=== PATIENT | male | born 1955 | race Caucasian/White ===

== ENCOUNTER 2018-10-08 11:17 | Emergency (ER) | payer OTHER, BC ==
[2018-10-08 11:28] VITALS: BP 162/77; PULSE 102; RESP 18; TEMP 98.2
[2018-10-08] MEDS ORDERED: Acetaminophen-Codeine 300-30mg TAB PO STA (11:57)
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
--- NOTE | 2018-10-08 12:40 | XR ---
EXAMINATION TYPE: XR chest 1V DATE OF EXAM: 10/08/2018 COMPARISON: NONE HISTORY: Pain TECHNIQUE: Single frontal view of the chest is obtained. FINDINGS: Subsegmental consolidation at both lung bases. Nonspecific pleural thickening on the left with evidence of previous trauma. No pneumothorax. Biapical pleural thickening. Hypertrophic change o f the spine. Deformity of the left clavicle noted. IMPRESSION: Bilateral lower lobe atelectasis or infiltrate. Chronic appearing pleural thickening and rib cage deformity on the left. Deformity of the left clavicle. Correlate clinically.
--- NOTE | 2018-10-08 12:42 | XR ---
EXAMINATION TYPE: XR shoulder complete LT DATE OF EXAM: 10/08/2018 COMPARISON: NONE HISTORY: Pain TECHNIQUE: Three views are submitted. FINDINGS: There is a displaced fracture involving the left clavicle. Chronic appearing fracture and arthropathy of the left humerus. Rib cage deformities and pleural thickening suggest previous trauma. There is A C joint arthropathy. IMPRESSION: 1. Severe arthropathy left shoulder with evidence of previous left humeral fracture. 2. Displaced left midclavicular fracture of indeterminate age but may be chronic correlate with point tenderness. 3. AC joint arthropathy.
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
== END 2018-10-08 13:30 | disposition home or self-care (01) ==
LOC: EC 11:17
DX: S42.002A Fracture of unspecified part of left clavicle, initial encounter for closed fracture (principal); R07.9 Chest pain, unspecified; E11.9 Type 2 diabetes mellitus without complications; E78.5 Hyperlipidemia, unspecified; G47.30 Sleep apnea, unspecified; Z99.89 Dependence on other enabling machines and devices; F41.9 Anxiety disorder, unspecified; Z79.4 Long term (current) use of insulin; Z79.899 Other long term (current) drug therapy; V89.2XXA Person injured in unspecified motor-vehicle accident, traffic, initial encounter; Y92.410 Unspecified street and highway as the place of occurrence of the external cause
CPT/HCPCS: 70450; 71045; 72125; 99284

== ENCOUNTER → 2020-03-26 | Outpatient (CLI) | payer OTHER ==
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
== END | disposition home or self-care (01) ==
LOC: SLEEP 10:22
PROVIDERS: ATTEND Internal Medicine Critical Care Medicine
DX: G47.33 Obstructive sleep apnea (adult) (pediatric) (principal); E11.9 Type 2 diabetes mellitus without complications; I10 Essential (primary) hypertension; E78.5 Hyperlipidemia, unspecified; Z79.891 Long term (current) use of opiate analgesic; Z79.899 Other long term (current) drug therapy; Z79.4 Long term (current) use of insulin; Z99.89 Dependence on other enabling machines and devices
CPT/HCPCS: 99211

== ENCOUNTER → 2020-06-18 | Outpatient (CLI) | payer OTHER ==
--- NOTE | 2020-06-18 11:45 | PN ---
PROGRESS NOTE This patient is coming in for a compliance check. The patient was diagnosed having severe obstructive sleep apnea with an AHI of 63 and the patient currently has a CPAP with a pressure of 12 cm of water and this is his first compliancy check. He is using the Rosa Maria View full-face mask large size. He is doing extremely well. His weight has been stable at 295. He likes his machine. His sleep quality is improved. He is waking up refreshed and alert during the day and he is benefitting from the ongoing treatment. He is known to have diabetes, hypertension, hyperlipidemia as comorbid conditions. Based on the compliancy data that was completed on the machine for the past 30 days, the patient has been averaging around 6 hours of CPAP use per night with a leak of 18 L/minute. His AHI is down to 4.3 while on treatment. No snoring. No tiredness. No fatigue. No heartburn. No chest pain. No shortness of breath overnight. REVIEW OF SYSTEMS: Fourteen-point review of system was done. Positive findings were mentioned in history of present illness. PHYSICAL EXAMINATION: VITAL SIGNS: BP is 162/94, pulse 84, respirations 12, temperature 97.3, saturation 99% on room air. Weight is 295. GENERAL APPEARANCE: Obese, calm, comfortable. HEAD: Atraumatic, normocephalic. NECK: Supple. No JVD. No goiter or neck masses. LUNGS: Diminished otherwise clear. HEART: Heart sounds are regular rate and rhythm. Normal S1, S2. No S3, S4. No murmurs. ABDOMEN: Soft, nontender. No organomegaly. EXTREMITIES: No edema. No cyanosis or clubbing. IMPRESSION: 1. Severe obstructive sleep apnea, AHI of 63, currently on CPAP at a pressure of 12 cm of water. 2. Nocturnal oxygen desaturation likely improved with CPAP therapy. 3. Chronic hypersomnia, improving with CPAP therapy. 4. Diabetes mellitus. 5. Hypertension. 6. Hyperlipidemia. PLAN: 1. Continue CPAP with the same level of pressure of 12 cm of water. 2. Keep the Rosa Maria View large-size full-face mask. 3. Encourage weight loss. 4. Maintaining good sleep hygiene measures. 5. See me back in followup an a year's time. No need for any further adjustments. His treatment is successful for now. MMODL / IJN: [id number] /
== END ==
LOC: SLEEP 09:19
PROVIDERS: ATTEND Internal Medicine Critical Care Medicine
DX: G47.33 Obstructive sleep apnea (adult) (pediatric) (principal); G47.10 Hypersomnia, unspecified; E11.9 Type 2 diabetes mellitus without complications; I10 Essential (primary) hypertension; E78.5 Hyperlipidemia, unspecified; E66.9 Obesity, unspecified; Z99.81 Dependence on supplemental oxygen

== ENCOUNTER → 2020-07-26 | Outpatient (CLI) | payer OTHER ==
--- NOTE | 2020-07-26 19:37 | US ---
EXAMINATION TYPE: US kidneys/renal and bladder DATE OF EXAM: 07/26/2020 COMPARISON: NONE CLINICAL HISTORY: N28.9 Chronic kidney disease. EXAM MEASUREMENTS: Right Kidney: 13.1 x 6.1 x 5.0 cm Left Kidney: 12.2 x 5.3 x 5.3 cm Right Kidney: cyst measuring 2.1 x 2.0 x 2.6cm, cyst is anechoic with increased through transmission and imperceptible wall consistent with simple cyst Left Kidney: lobular contour, upper pole shows a somewhat bulbous appearance Bladder: wnl There is no evidence for hydronephrosis at this point in time. No nephrolithiasis is seen. Cortical medullary differentiation is maintained. The urinary bladder is anechoic. Bilateral ureteral jets a re seen. IMPRESSION: Successful cyst right kidney. Contour abnormality left kidney upper pole, difficult to exclude mass, consider contrast-enhanced CT or MRI versus continued interval follow-up to assess for stability
== END | disposition home or self-care (01) ==
LOC: RADUSWWP 16:05
PROVIDERS: ATTEND Family Medicine
DX: N28.1 Cyst of kidney, acquired (principal)
CPT/HCPCS: 76770

== ENCOUNTER → 2020-10-03 | Outpatient (CLI) | payer OTHER | END | disposition home or self-care (01) | LOC: RADMRIMAIN 08:57 | PROVIDERS: ATTEND Urology | DX: Z53.9 Procedure and treatment not carried out, unspecified reason (principal) ==

== ENCOUNTER → 2020-10-21 | Outpatient (CLI) | payer OTHER ==
--- NOTE | 2020-10-21 12:56 | XR ---
EXAMINATION TYPE: XR cervical spine comp DATE OF EXAM: 10/21/2020 TECHNIQUE: Frontal, lateral, oblique, swimmers, and open mouth view of the cervical spine are obtaine d. HISTORY: Neck/LBP COMPARISON: None FINDINGS: Vertebral body heights are preserved. Alignment is anatomic. Multilevel endplate sclerosis and osteop hytosis is seen. There is multilevel uncovertebral and facet arthropathy with bony encroachment upon the right C3-4 and left C2-3, C3-4, C4-5 and C5-6 neural foramen. IMPRESSION: Multilevel disc disease and osteoarthritic changes of the cervical spine.
--- NOTE | 2020-10-21 14:20 | XR ---
EXAMINATION TYPE: XR lumbosacral spine min 4V DATE OF EXAM: 10/21/2020 CLINICAL HISTORY: Chronic low back TECHNIQUE: Frontal, lateral, and oblique images of the lumbar spine are obtained. COMPARISON: None FINDINGS: There are 5 lumbar type vertebral bodies identified. There is levoscoliosis of the lumbar spine. Multilevel endplate sclerosis and osteophytosis is noted. There is straightening of the normal lumbar lordosis. Multilevel facet arthropathy is seen. Vascular calcifications are noted. IMPRESSION: Multilevel disc disease and osteoarthritic changes of the lumbar spine with levoscoliosis.
== END | disposition home or self-care (01) ==
LOC: RADXRMAIN 11:55
PROVIDERS: ATTEND Family Medicine
DX: M51.36 Other intervertebral disc degeneration, lumbar region (principal); M47.816 Spondylosis without myelopathy or radiculopathy, lumbar region; M47.812 Spondylosis without myelopathy or radiculopathy, cervical region; M50.322 Other cervical disc degeneration at C5-C6 level
CPT/HCPCS: 72050; 72110

== ENCOUNTER → 2020-12-19 | Outpatient (CLI) | payer OTHER ==
[2020-12-19 12:49] LABS: Appearance,Urine Clear (Clear); Bilirubin,Urine Negative (Negative); Blood,Urine Negative (Negative); Color,Urine Yellow; Glucose,Urine (UA) 4+ (Negative); Ketones,Urine Negative (Negative); Leukocyte Esterase,Urine Negative (Negative); Nitrite,Urine Negative (Negative); Protein,Urine Negative (Negative); Specific Gravity,Urine 1.017 (1.001-1.035); Urobilinogen,Urine <2.0 mg/dL (<2.0)
[2020-12-19 18:52] LABS: HCT 45.9 % (39.6-50.0); HGB 14.3 g/dL (13.0-17.0); MCH 28.5 pg (27.0-32.0); MCHC 31.2 g/dL (32.0-37.0); MCV 91.6 fL (80.0-97.0); Mean Platelet Volume 11.7 fL (9.5-12.2); Platelet Count 176 X 10*3/uL (140-440); RBC 5.01 X 10*6/uL (4.40-5.60); WBC 8.56 X 10*3/uL (4.50-10.00)
[2020-12-20 05:20] LABS: % Iron Saturation 16.43 (15.00-50.00); African American GFR (CKD) 61.5 (60.0-200.0); Albumin 4.6 g/dL (3.80-4.90); Albumin/Globulin Ratio 1.92 (1.60-3.17); Anion Gap 13.3 mmol/L (4.00-12.00); BUN/Creat Ratio 22.14 Ratio (12.00-20.00); Calcium 10.1 mg/dL (8.7-10.3); Carbon Dioxide 24.7 mmol/L (21.6-31.8); Globulin 2.4 g/dL (1.6-3.3); Magnesium 1.9 mg/dL (1.5-2.4); Non-African American GFR(CKD) 53.1 (60.0-200.0); Phosphorus 4.2 mg/dL (2.4-5.1); Potassium 4.3 mmol/L (3.5-5.5); Total Bilirubin 0.3 mg/dL (0.2-1.2); Uric Acid 8.3 mg/dL (3.7-8.7)
[2020-12-20 05:27] LABS: Ferritin 23.5 ng/mL (22.0-322.0)
[2020-12-20 14:06] LABS: Urine Creatinine 44.8 mg/dL
== END | disposition home or self-care (01) ==
LOC: LABWHC1 11:42
PROVIDERS: ATTEND Internal Medicine
DX: N18.31 Chronic kidney disease, stage 3a (principal); D64.9 Anemia, unspecified; N39.0 Urinary tract infection, site not specified; N25.81 Secondary hyperparathyroidism of renal origin; E55.9 Vitamin D deficiency, unspecified; M10.9 Gout, unspecified
CPT/HCPCS: 36415; 80053; 81003; 82043; 82306; 82570; 82728; 83540; 83550; 83735; 83970; 84100; 84550; 85027

== ENCOUNTER → 2021-04-29 | Outpatient (CLI) | payer OTHER ==
[2021-04-29 14:27] LABS: Appearance,Urine Clear (Clear); Bilirubin,Urine Negative (Negative); Blood,Urine Negative (Negative); Color,Urine Yellow; Glucose,Urine (UA) 4+ (Negative); Ketones,Urine Negative (Negative); Leukocyte Esterase,Urine Negative (Negative); Nitrite,Urine Negative (Negative); Protein,Urine Negative (Negative); Specific Gravity,Urine 1.013 (1.001-1.035); Urobilinogen,Urine <2.0 mg/dL (<2.0)
[2021-04-29 17:54] LABS: Basophils # (A) 0.04 X 10*3/uL (0.00-0.10); Basophils % (A) 0.5 %; Eosinophils # (A) 0.06 X 10*3/uL (0.04-0.35); Eosinophils % (A) 0.7 %; HCT 46.6 % (39.6-50.0); HGB 14.5 g/dL (13.0-17.0); Lymphocytes # (A) 1.73 X 10*3/uL (0.90-5.00); Lymphocytes % (A) 20.8 %; MCHC 31.1 g/dL (32.0-37.0); MCV 93.2 fL (80.0-97.0); Mean Platelet Volume 11.9 fL (9.5-12.2); Monocytes # (A) 0.57 X 10*3/uL (0.20-1.00); Monocytes % (A) 6.9 %; Neutrophils # (A) 5.87 X 10*3/uL (1.80-7.70); Neutrophils % (A) 70.7 %; Platelet Count 169 X 10*3/uL (140-440)
[2021-04-29 18:08] LABS: % Iron Saturation 21.23 (15.00-50.00); African American GFR (CKD) 66.8 (60.0-200.0); Albumin 4.3 g/dL (3.8-4.9); Albumin/Globulin Ratio 1.47 (1.60-3.17); Anion Gap 12.7 mmol/L (10.00-18.00); BUN/Creat Ratio 17.38 Ratio (12.00-20.00); Blood Urea Nitrogen 22.6 mg/dL (9.0-27.0); Calcium 9.5 mg/dL (8.7-10.3); Carbon Dioxide 23.6 mmol/L (20.0-27.5); Globulin 2.9 g/dL (1.6-3.3); Magnesium 2.2 mg/dL (1.5-2.4); Non-African American GFR(CKD) 57.7 (60.0-200.0); Phosphorus 3.6 mg/dL (2.4-5.1); Potassium 4.6 mmol/L (3.5-5.5); Total Bilirubin 0.3 mg/dL (0.30-1.20); Total Protein 7.2 g/dL (6.2-8.2); Uric Acid 6.3 mg/dL (3.7-8.7)
[2021-04-29 18:47] LABS: Ferritin 45.8 ng/mL (22.0-322.0)
[2021-04-29 23:19] LABS: Urine Creatinine 51.9 mg/dL (39.0-259.0)
== END | disposition home or self-care (01) ==
LOC: LABWHC1 13:12
PROVIDERS: ATTEND Internal Medicine
DX: E11.65 Type 2 diabetes mellitus with hyperglycemia (principal); E11.22 Type 2 diabetes mellitus with diabetic chronic kidney disease; N18.31 Chronic kidney disease, stage 3a
CPT/HCPCS: 36415; 80053; 81003; 82043; 82306; 82570; 82728; 83036; 83540; 83550; 83735; 83970; 84100; 84550; 85025

== ENCOUNTER → 2021-06-24 | Outpatient (CLI) | payer OTHER ==
--- NOTE | 2021-06-24 16:09 | P.PN ---
Subjective Progress Note Date: 06/24/21 This is a 66-year-old male patient with known history of obstructive sleep apnea. I'm seeing this patient for a follow-up. His last evaluation was in the sleep center on 06/18/2020. The patient is known to have severe SARAH and the patient carries a AHI of 63. The patient continues to be on a CPAP pressure of 12 cm of water. He continues to use the Rosa Maria view fullface mask, large size. He is doing well. He has no specific complaints. He has noted that his AHI has been recently higher than the usual. Based on this, I did a compliance evaluation of this patient. Based on the thirty-day compliancy, I noted that the patient has been achieving more than 4 hours of CPAP use 100% of the time. The patient has been averaging around 81 hours of CPAP use per night. Leak is in order of 5 L per minute and the patient had an AHI of 8.5 while on treatment. The patient's weight is at 283 which is lower compared to last year and the patient has lost approximately 12 pounds. No angina. No palpitation. No chest pain. No shortness of breath. No heartburn. No sleepwalking. No sleep talking. No sleep paralysis. No naps during the day. He is able to drive his car without feeling drowsy or falling sleep. Objective - Exam the patient's BP is at143/82 with a pulse of 96 the patient has a respiration of 16 with a temperature of 96.9. The patient has a sleepiness [place] score of 6. The patient's saturations 98% on room air oxygen. His weight is down to 283 pounds. The patient appeared well nourished and normally developed. Vital signs as documented. Head exam is unremarkable. No scleral icterus or corneal arcus noted. Neck is without jugular venous distension, thyromegaly, or carotid bruits. the patient is a Mallampati class IV.Carotid upstrokes are brisk bilaterally. Lungs are clear to auscultation and percussion. Cardiac exam reveals the PMI to be normally sized and situated. Rhythm is regular. First and second heart sounds normal. No murmurs, rubs or gallops. Abdominal exam reveals normal bowel sounds, no masses, no organomegaly and no aortic enlargement. Extremities are nonedematous and both femoral and pedal pulses are normal.Examination of the skin revealed no evidence of significant rashes, suspicious appearing nevi or other concerning lesions.Neurologically, the patient is awake and alert and the patient does not have any focal neurological deficit. Cranial nerves are essentially intact. Assessment and Plan Plan: 1 obstructive sleep apnea, severe, with an AHI of 63, currently on CPAP pressure of 12 cm of water. 2 hypersomnia, improved 3 obesity with interval weight loss, current body weight is 283 4 diabetes mellitus 5 hypertension 6 hyperlipidemia Plan I check the compliance data. Ongoing to increase his CPAP pressure to 13 cm of water and I'm hoping to bring his AHI on the 5. He'll be kept on the same fullface maskwhich is a large size Rosa Maria view fullface mask. His sleep hygiene measures that in general good. Doing well. No other major comorbidities. We'll see tachypneic and follow-up regarding his obstructive sleep apnea.
== END ==
LOC: SLEEP 13:07
PROVIDERS: ATTEND Internal Medicine Critical Care Medicine
DX: G47.33 Obstructive sleep apnea (adult) (pediatric) (principal); Z99.89 Dependence on other enabling machines and devices; E66.9 Obesity, unspecified; E11.9 Type 2 diabetes mellitus without complications; I10 Essential (primary) hypertension; E78.5 Hyperlipidemia, unspecified

== ENCOUNTER → 2021-09-02 | Outpatient (CLI) | payer OTHER ==
[2021-09-02 22:39] LABS: HCT 47.7 % (39.6-50.0); MCHC 31.4 g/dL (32.0-37.0); MCV 92.3 fL (80.0-97.0); Mean Platelet Volume 11.6 fL (9.5-12.2); NRBC Per 100 WBC 0 /100 WBCS (0.0-0.0); Platelet Count 162 X 10*3/uL (140-440); RBC 5.17 X 10*6/uL (4.40-5.60); RDW 15.3 % (11.5-14.5)
[2021-09-02 22:48] LABS: ALT 46 U/L (10-49); AST 26 U/L (14-35); African American GFR (CKD) 61.1 (60.0-200.0); Albumin 4.4 g/dL (3.8-4.9); Albumin/Globulin Ratio 1.57 (1.60-3.17); Alkaline Phosphatase 48 U/L (41-126); Blood Urea Nitrogen 23.8 mg/dL (9.0-27.0); Calcium 9.8 mg/dL (8.7-10.3); Carbon Dioxide 24.9 mmol/L (20.0-27.5); Chloride 99 mmol/L (96-109); Globulin 2.8 g/dL (1.6-3.3); Glucose 103 mg/dL (70-110); Magnesium 2.3 mg/dL (1.5-2.4); Non-African American GFR(CKD) 52.7 (60.0-200.0); Phosphorus 4.1 mg/dL (2.4-5.1); Potassium 4.6 mmol/L (3.5-5.5); Sodium 136 mmol/L (135-145); Total Bilirubin <0.15 mg/dL (0.30-1.20); Total Protein 7.2 g/dL (6.2-8.2); Uric Acid 6.2 mg/dL (3.7-8.7)
[2021-09-03 00:30] LABS: % Iron Saturation 14.88 (15.00-50.00); Iron 55 ug/dL (65-175); Total Iron Binding Capacity 368 ug/dL (228-460)
[2021-09-03 00:48] LABS: Ferritin 50.4 ng/mL (22.0-322.0)
[2021-09-03 01:07] LABS: Appearance,Urine Clear (Clear); Bilirubin,Urine Negative (Negative); Blood,Urine Negative (Negative); Color,Urine Dark Yellow (Yellow); Ketones,Urine Negative (Negative); Nitrite,Urine Negative (Negative); PH, Urine 5.5 (5.0-8.0); Specific Gravity,Urine 1.019 (1.001-1.030); Urobilinogen,Urine 0.2 (0.2,1.0)
[2021-09-03 05:23] LABS: Urine Creatinine 53.1 mg/dL (39.0-259.0)
== END | disposition home or self-care (01) ==
LOC: LABWHC1 15:49
PROVIDERS: ATTEND Nurse Practitioner Family
DX: E55.9 Vitamin D deficiency, unspecified (principal); N18.31 Chronic kidney disease, stage 3a; D64.9 Anemia, unspecified; M10.9 Gout, unspecified; N39.0 Urinary tract infection, site not specified; N25.81 Secondary hyperparathyroidism of renal origin
CPT/HCPCS: 36415; 80053; 81003; 82043; 82306; 82570; 82728; 83540; 83550; 83735; 83970; 84100; 84550; 85027

== ENCOUNTER → 2022-08-25 | Outpatient (CLI) | payer MEDICARE, OTHER ==
--- NOTE | 2022-08-25 14:19 | P.PN ---
Progress Note - Text Progress Note Date: 08/25/22 67-year-old male patient was coming in to see me for an annual checkup regarding his obstructive sleep apnea. He is a case of severe SARAH with an AHI of 63. His last evaluation was on 06/24/2021. At that time, the patient was noted to have increase apneas while being on CPAP. Based on that, I moved his pressure from 12 cm of water to 13 cm of water. Since then, the patient has lost weight. He used to weigh around 286 pounds and currently is down to 256. He is going to some difficulties times with his family and . He is at this point in time and is living alone. His was having issues with bipolar and mental health. Meanwhile, the patient is still very much compliant to CPAP unit. His machine is functional. He has using the machine every night and his compliancy in general is at 100%, averaging about 8.1 hours of CPAP per night with a leak of 12 L/m and his AHI is down to 5.9 while on treatment. No snoring. No hypersomnia or sleepiness during the day. Is using a Rosa Maria view, fullface mask. He is known to have other comorbid conditions including diabetes mellitus type 2, hypertension, chronic back pain and hyperlipidemia. No stroke. No congestion heart failure. No cardiac arrhythmias. No sleep walking. No sleep talking. He is taking CBD for chronic back pain. No headaches. BP is 129/82, pulse is 92, respirations 16, temperature is 98.2 and the weight is 256. [place] score is at 8. Body mass index is 33.8 The patient appeared well nourished and normally developed. Vital signs as documented. Head exam is unremarkable. No scleral icterus or corneal arcus noted. Neck is without jugular venous distension, thyromegaly, or carotid bruits. Carotid upstrokes are brisk bilaterally. Lungs are clear to auscultation and percussion. Cardiac exam reveals the PMI to be normally sized and situated. Rhythm is regular. First and second heart sounds normal. No murmurs, rubs or gallops. Abdominal exam reveals normal bowel sounds, no masses, no organomegaly and no aortic enlargement. Extremities are nonedematous and both femoral and pedal pulses are normal.Examination of the skin revealed no evidence of significant rashes, suspicious appearing nevi or other concerning lesions.Neurologically, the patient is awake and alert and the patient does not have any focal neurological deficit. Cranial nerves are essentially intact. Assessment Severe SARAH with an AHI of 63, currently on CPAP pressure of 15 cm of water. The patient is demonstrating excellent compliancy and clinical response. Obesity with interval weight loss. Current body mass index is 33.8 Chronic hypersomnia, improved and the patient's [place] score is down to 8 Diabetes mellitus type 2 Hypertension Hyperlipidemia Chronic back pain Plan Continue CPAP therapy at a pressure of 13 cm of water. Will maintain same mask interface. The patient is using a full facemask. Treatment is successful. The patient is compliant. Encourage further weight loss. Rest of the comorbid conditions are all inactive and stable. The patient's machine is functional. The patient will see him back in one year for a follow-up regarding his obstructive sleep apnea.
== END ==
LOC: SLEEP 13:51
PROVIDERS: ATTEND Internal Medicine Critical Care Medicine
DX: G47.33 Obstructive sleep apnea (adult) (pediatric) (principal); Z99.89 Dependence on other enabling machines and devices; E66.9 Obesity, unspecified; Z68.33 Body mass index [BMI] 33.0-33.9, adult; E11.9 Type 2 diabetes mellitus without complications; I10 Essential (primary) hypertension; E78.5 Hyperlipidemia, unspecified; M54.9 Dorsalgia, unspecified; G89.29 Other chronic pain
CPT/HCPCS: 99212